=== PATIENT | male | born 1945 | race African-American/Black ===

== ENCOUNTER 2017-03-07 11:09 | Emergency (ER) | payer MEDICARE, MEDICAID ==
--- NOTE | 2017-03-07 11:20 | ER Document Report ---
ED Medical Screen (RME) - General Chief Complaint: Abdominal Pain Stated Complaint: STOMACH PAIN Time Seen by Provider: 03/07/17 11:18 Mode of Arrival: Ambulatory Information source: Patient TRAVEL OUTSIDE OF THE [place] IN LAST 30 DAYS: No - HPI Patient complains to provider of: abdominal pain Onset/Duration: Gradual Quality of pain: Fullness, Pressure Notes: 03/07/17 11:19 Patient is a 71-year-old male who presents to the emergency room complaining of abdominal pain and distention that been going on over the past few months and worsening, he reports he feels as though it is full of fluid, he reports that he cannot move his bowels for the past 3 days - Related Data Allergies/Adverse Reactions: No Known Allergies Allergy (Verified 03/07/17 11:14) Past Medical History - Past Medical History Cardiac Medical History: Reports: Hx Hypertension Endocrine Medical History: Reports: Hx Diabetes Mellitus Type 2 Renal/ Medical History: Denies: Hx Peritoneal Dialysis - Immunizations Hx Diphtheria, Pertussis, Tetanus Vaccination: - unk Physical Exam - Vital signs Vitals: Temp Pulse Resp BP Pulse Ox 98.1 F 77 20 113/86 H 97 03/07/17 11:14 03/07/17 11:14 03/07/17 11:14 03/07/17 11:14 03/07/17 11:14 Course - Vital Signs Vital signs: Temp Pulse Resp BP Pulse Ox 98.1 F 77 20 113/86 H 97 03/07/17 11:14 03/07/17 11:14 03/07/17 11:14 03/07/17 11:14 03/07/17 11:14
--- NOTE | 2017-03-07 11:54 | ER Document Report ---
ED GI/ - General Chief Complaint: Abdominal Pain Stated Complaint: STOMACH PAIN Time Seen by Provider: 03/07/17 11:18 Mode of Arrival: Ambulatory Notes: 71 yo male c/o pain to the umbilical hernia that protrudes (chronic) and the swelling to his abdomen (chorinic). Stating in the homeless correction Most worried because he can't pull up his pants like he wants to. Hx cirrhosis, no etoh in 2 years. No vomiting. No fever or chills. Normal BM's. hx 2 parencentisis to remove ascites in past, last 6 months ago at [facility]. TRAVEL OUTSIDE OF THE [place] IN LAST 30 DAYS: No - Related Data Allergies/Adverse Reactions: No Known Allergies Allergy (Verified 03/07/17 11:14) Past Medical History - General Information source: Patient - Social History Smoking Status: Current Every Day Smoker Chew tobacco use (# tins/day): No Frequency of alcohol use: Rare Drug Abuse: None Lives with: Homeless Family History: Reviewed & Not Pertinent Patient has suicidal ideation: No Patient has homicidal ideation: No - Past Medical History Cardiac Medical History: Reports: Hx Hypertension Endocrine Medical History: Reports: Hx Diabetes Mellitus Type 2 Renal/ Medical History: Denies: Hx Peritoneal Dialysis - Immunizations Hx Diphtheria, Pertussis, Tetanus Vaccination: - unk Review of Systems - Review of Systems Constitutional: No symptoms reported EENT: No symptoms reported Cardiovascular: No symptoms reported Respiratory: No symptoms reported Gastrointestinal: See HPI Genitourinary: No symptoms reported Male Genitourinary: No symptoms reported Musculoskeletal: No symptoms reported Skin: No symptoms reported Hematologic/Lymphatic: No symptoms reported Neurological/Psychological: No symptoms reported Physical Exam - Vital signs Vitals: Temp Pulse Resp BP Pulse Ox 98.1 F 77 20 113/86 H 97 03/07/17 11:14 03/07/17 11:14 03/07/17 11:14 03/07/17 11:14 03/07/17 11:14 Interpretation: Normal - General General appearance: Appears well, Alert - HEENT Head: Normocephalic, Atraumatic Eyes: Normal Conjunctiva: No: Icteric Pupils: PERRL - Respiratory Respiratory status: No respiratory distress Chest status: Nontender Breath sounds: Normal Chest palpation: Normal - Cardiovascular Rhythm: Regular Heart sounds: Normal auscultation Murmur: No - Abdominal Inspection: Normal Distension: Fluid wave, Other - protruburant, soft reducible umbilixal hernia Bowel sounds: Normal Tenderness: Nontender. No: Tender Organomegaly: No organomegaly - Back Back: Normal, Nontender - Extremities General upper extremity: Normal inspection, Nontender, Normal color, Normal ROM , Normal temperature General lower extremity: Normal inspection, Nontender, Normal color, Normal ROM , Normal temperature, Normal weight bearing. No: Golden's sign - Neurological Neuro grossly intact: Yes Cognition: Normal Orientation: AAOx4 Sheryl Coma Scale Eye Opening: Spontaneous Sheryl Coma Scale Verbal: Oriented Hancock Coma Scale Motor: Obeys Commands Hancock Coma Scale Total: 15 Speech: Normal Motor strength normal: LUE, RUE, LLE, RLE Sensory: Normal - Psychological Associated symptoms: Normal affect, Normal mood - Skin Skin Temperature: Warm Skin Moisture: Dry Skin Color: Normal Course - Re-evaluation Re-evalutation: 03/07/17 16:[address] to keep the umbilicus hernia in, and he will be referred with outpatient paracentitis per dr. cedillo consult. his vitals are stable, no sob. will give referral for general surgery as well. - Vital Signs Vital signs: Temp Pulse Resp BP Pulse Ox 97.9 F 63 16 130/85 H 99 03/07/17 16:15 03/07/17 16:15 03/07/17 16:15 03/07/17 16:15 03/07/17 16:15 - Laboratory Result Diagrams: 03/07/17 11:40 03/07/17 11:40 Laboratory results interpreted by me: 03/07/17 03/07/17 03/07/17 11:30 11:30 11:40 WBC 3.7 L RBC 3.88 L Hgb 12.8 L MCV 100 H Plt Count 67 L Seg Neutrophils % 27.6 L Lymphocytes % 59.2 H Absolute Neutrophils 1.0 L PT 16.5 H Total Bilirubin Direct Bilirubin AST ALT Alkaline Phosphatase Ammonia Total Protein Albumin Urine Urobilinogen 4.0 H 03/07/17 03/07/17 11:40 11:40 WBC RBC Hgb MCV Plt Count Seg Neutrophils % Lymphocytes % Absolute Neutrophils PT Total Bilirubin 1.5 H Direct Bilirubin 0.8 H AST 192 H ALT 126 H Alkaline Phosphatase 185 H Ammonia < 8.7 L Total Protein 8.3 H Albumin 3.0 L Urine Urobilinogen Discharge - Discharge Clinical Impression: Reducible Stable umbilical hernia, liver failure Ascites Qualifiers: Ascites type: due to alcoholic hepatitis Qualified Code(s): K70.11 - Alcoholic hepatitis with ascites Condition: Good Disposition: HOME, SELF-CARE Additional Instructions: to er if symptoms worsen call thursday morning to the radiology scheduling for this week drink Water every day referral to general surgery for the hernia tammie wrap to abdomen for comfort Forms: Follow-Up Radiology Testing Referrals: UNA MONTES MD [ACTIVE STAFF] - Follow up as needed
[2017-03-07 11:55] LABS: ABSOLUTE EOSINOPHILS # (AUTO) 0.1 10^3/uL (0.0-0.6); ABSOLUTE LYMPHOCYTES (AUTO) 2.2 10^3/uL (0.5-4.7); ABSOLUTE MONOCYTES (AUTO) 0.4 10^3/uL (0.1-1.4); BASOPHILS % (AUTO) 0.7 % (0-2); EOSINOPHILS % (AUTO) 2.2 % (0-6); HEMATOCRIT 38.6 % (37.9-51.0); HEMOGLOBIN 12.8 g/dL (13.5-17.0); HGB HCT DIFFERENCE -0.2; LYMPHOCYTES % (AUTO) 59.2 % (13-45); MEAN CORPUSCULAR HEMOGLOBIN 32.9 pg (27.0-33.4); MEAN CORPUSCULAR VOLUME 100 fl (80-97); MONOCYTES % (AUTO) 10.3 % (3-13); RED BLOOD COUNT 3.88 10^6/uL (4.35-5.55); RED CELL DISTRIBUTION WIDTH 13.8 % (11.5-14.0); SEGMENTED NEUTROPHILS % (AUTO) 27.6 % (42-78); WHITE BLOOD COUNT 3.7 10^3/uL (4.0-10.5)
[2017-03-07 12:01] LABS: APPEARANCE,URINE SLIGHTLY-CLOUDY; BILIRUBIN,URINE NEGATIVE (NEGATIVE); GLUCOSE, URINE NEGATIVE (NEGATIVE); KETONES,URINE NEGATIVE (NEGATIVE); LEUKOCYTE ESTERASE,URINE NEGATIVE (NEGATIVE); NITRITE,URINE NEGATIVE (NEGATIVE); PROTEIN,URINE NEGATIVE (NEGATIVE)
[2017-03-07 12:12] LABS: ALANINE AMINOTRANSFERASE 126 U/L (21-72); ALKALINE PHOSPHATASE 185 U/L (38-126); ASPARTATE AMINO TRANSFERASE 192 U/L (17-59); BILIRUBIN,DIRECT 0.8 mg/dL (0.0-0.4); BILIRUBIN,TOTAL 1.5 mg/dL (0.2-1.3); BLOOD UREA NITROGEN 10 mg/dL (7-20); CALCIUM 8.6 mg/dL (8.4-10.2); CHLORIDE 107 mmol/L (98-107); CREATININE RESULT 0.84 mg/dL (0.52-1.25); GLUCOSE 97 mg/dL (75-110); LIPASE 174.4 U/L (23-300); POTASSIUM 4.3 mmol/L (3.6-5.0); TOTAL PROTEIN 8.3 g/dL (6.3-8.2)
[2017-03-07 12:20] LABS: CARBON DIOXIDE 25 mmol/L (22-30); SODIUM 137.8 mmol/L (137-145)
[2017-03-07 12:26] LABS: ANION GAP 6 (5-19)
[2017-03-07 15:40] LABS: PROTHROMBIN TIME 16.5 SEC (11.4-15.4)
[2017-03-07 16:18] VITALS: BP 130/85
== END 2017-03-07 17:00 | disposition home or self-care (01) ==
LOC: ER 11:09
DX: K70.11 Alcoholic hepatitis with ascites (principal); K42.9 Umbilical hernia without obstruction or gangrene; K72.90 Hepatic failure, unspecified without coma; R10.9 Unspecified abdominal pain; R19.00 Intra-abdominal and pelvic swelling, mass and lump, unspecified site; F17.200 Nicotine dependence, unspecified, uncomplicated
CPT/HCPCS: 36415; 80053; 81001; 82140; 83690; 85025; 85610; 87086; 99284

== ENCOUNTER → 2017-03-09 | Day surgery (SDC) | payer MEDICARE, MEDICAID ==
--- NOTE | 2017-03-09 12:34 | RADIOLOGY REPORT (SQ) ---
EXAM DESCRIPTION: U/S ABD PARACENTESIS COMPLETED DATE/TIME: 03/09/2017 11:48 am REASON FOR STUDY: ASCITES (R18.8) R18.8 OTHER ASCITES COMPARISON: None. LIMITATIONS: None. PROCEDURE: Procedure, risks, benefit, and alternative explained to patient who then gave written con sent. The right lower quadrant abdominal wall marked using ultrasound guidance. A time-out was call ed for correct marking verification. Abdomen prepped and draped using sterile technique. Local anest hesia achieved using 5 ml of 1% lidocaine injection. A 6fr [id number]-G-[id number] set was introduced into t he peritoneal cavity. Fluid was drained. The catheter was removed and entry site was covered with s terile bandage. No immediate complications noted. Images acquired during the procedure were stored on PACS. FINDINGS: ENTRY SITE: Right lower quadrant. FLUID VOLUME: 5000 mL. FLUID ANALYSIS: Straw-colored fluid. OTHER: Fluid sent to the lab for testing. IMPRESSION: SUCCESSFUL ULTRASOUND GUIDED PARACENTESIS. COMMENT: Patient medication list reviewed:Yes- Quality ID# [id number]:Eligible professional attests to docu menting in the medical record they obtained, updated, or reviewed the patient's current medications. TECHNICAL DOCUMENTATION: JOB ID: [id number] [employer]- All Rights Reserved
[2017-03-09 13:16] LABS: FLUID APPEARANCE CLOUDY; FLUID RBC AVERAGE 166.5; FLUID RBC DILUENT USED NONE USED; FLUID RBC DILUTION FACTOR 1; FLUID RBC SIDE 1 173; FLUID RBC SIDE 2 160; FLUID TYPE PERITONEAL; TOTAL RBC SQUARES COUNTED FLD 25
== END ==
LOC: RAD 10:15
PROVIDERS: ATTEND Nurse Practitioner Family
PROC: 0W9G3ZZ Drainage of Peritoneal Cavity, Percutaneous Approach (ICD-10-PCS; principal; 2017-03-09)
DX: R18.8 Other ascites (principal)
CPT/HCPCS: 49083; 87070; 87075; 87205; 88305; 88313; 88341; 88342; 89050

== ENCOUNTER 2017-03-17 19:00 | Emergency (ER) | payer MEDICARE, MEDICAID ==
--- NOTE | 2017-03-17 19:44 | ER Document Report ---
ED Medical Screen (RME) - General Chief Complaint: Abdominal Pain Stated Complaint: ABDOMINAL PAIN Time Seen by Provider: 03/17/17 19:42 Notes: Patient is a 71-year-old male, past medical history hep C cirrhosis, chronic ascites, umbilical hernia, presents with increasing abdominal pain over the past 2 days. He has an appointment with Dr. Kelley to discuss repairing his umbilical hernia tomorrow. His last paracentesis was 2 weeks ago and he does not have one scheduled. Denies vomiting, diarrhea, constipation or urinary symptoms. PE: large reducible umbilical hernia, tense abdomen, normal bowel sounds, RRR, CTAB I have greeted and performed a rapid initial assessment of this patient. A comprehensive ED assessment and evaluation of the patient, analysis of test results and completion of the medical decision making process will be conducted by additional ED providers. TRAVEL OUTSIDE OF THE [place] IN LAST 30 DAYS: No - Related Data Allergies/Adverse Reactions: No Known Allergies Allergy (Verified 03/17/17 19:08) Past Medical History - Past Medical History Cardiac Medical History: Reports: Hx Hypertension Endocrine Medical History: Reports: Hx Diabetes Mellitus Type 2 Renal/ Medical History: Denies: Hx Peritoneal Dialysis - Immunizations Hx Diphtheria, Pertussis, Tetanus Vaccination: - unk Physical Exam - Vital signs Vitals: Temp Pulse Resp BP Pulse Ox 98.1 F 73 16 138/89 H 100 03/17/17 19:08 03/17/17 19:08 03/17/17 19:08 03/17/17 19:08 03/17/17 19:08 Course - Vital Signs Vital signs: Temp Pulse Resp BP Pulse Ox 98.1 F 73 16 138/89 H 100 03/17/17 19:08 03/17/17 19:08 03/17/17 19:08 03/17/17 19:08 03/17/17 19:08
--- NOTE | 2017-03-17 20:52 | ER Document Report ---
ED General - General Chief Complaint: Abdominal Pain Stated Complaint: ABDOMINAL PAIN Time Seen by Provider: 03/17/17 19:42 Notes: Patient is a 71-year-old male with history of alcoholic cirrhosis with chronic ascites and a history of an umbilical hernia, recently seen in the emergency department for similar concern who presents with pain over the site of the umbilical hernia as well as requesting to have his abdominal ascites drained. Patient denies anything is new or different today that brought him to the emergency department. He does note a dull, aching, constant pain to the affected areas of his abdomen. Nothing improves or worsens his pain. He is scheduled to see Dr. Kelley in the morning for the umbilical hernias. He denies any associated fever, nausea, vomiting or diarrhea. States that he is continued be able to tolerate oral intake without difficulty. He has not had any fever or constitutional symptoms. TRAVEL OUTSIDE OF THE [place] IN LAST 30 DAYS: No - Related Data Allergies/Adverse Reactions: No Known Allergies Allergy (Verified 03/17/17 19:08) Past Medical History - General Information source: Patient - Social History Smoking Status: Current Every Day Smoker Frequency of alcohol use: None Drug Abuse: None Lives with: Homeless Family History: Reviewed & Not Pertinent Patient has suicidal ideation: No Patient has homicidal ideation: No - Past Medical History Cardiac Medical History: Reports: Hx Hypertension Endocrine Medical History: Reports: Hx Diabetes Mellitus Type 2 Renal/ Medical History: Denies: Hx Peritoneal Dialysis - Immunizations Hx Diphtheria, Pertussis, Tetanus Vaccination: - unk Review of Systems - Review of Systems Notes: Constitutional: Negative for fever. HENT: Negative for sore throat. Eyes: Negative for visual changes. Cardiovascular: Negative for chest pain. Respiratory: Negative for shortness of breath. Gastrointestinal: Positive for abdominal pain Genitourinary: Negative for dysuria. Musculoskeletal: Negative for back pain. Skin: Negative for rash. Neurological: Negative for headaches, weakness or numbness. 10 point ROS negative except as marked above and in HPI. Physical Exam - Vital signs Vitals: Temp Pulse Resp BP Pulse Ox 98.1 F 73 16 138/89 H 100 03/17/17 19:08 03/17/17 19:08 03/17/17 19:08 03/17/17 19:08 03/17/17 19:08 Interpretation: Normal Notes: PHYSICAL EXAMINATION: GENERAL: Well-appearing, well-nourished and in no acute distress. HEAD: Atraumatic, normocephalic. EYES: Pupils equal round and reactive to light, extraocular movements intact, sclera anicteric, conjunctiva are normal. ENT: nares patent, oropharynx clear without exudates. Moist mucous membranes. NECK: Normal range of motion, supple without lymphadenopathy LUNGS: Breath sounds clear to auscultation bilaterally and equal. No wheezes rales or rhonchi. HEART: Regular rate and rhythm without murmurs ABDOMEN: Distended abdomen with ascites and a fluid wave. There is a bulging umbilical hernia that appears to be fluid containing that is easily reducible and nontender to palpation. There is no focal abdominal tenderness rebound or guarding. EXTREMITIES: Normal range of motion, no pitting or edema. No cyanosis. NEUROLOGICAL: No focal neurological deficits. Moves all extremities spontaneously and on command. PSYCH: Normal mood, normal affect. SKIN: Warm, Dry, normal turgor, no rashes or lesions noted. Course - Re-evaluation Re-evalutation: 03/17/17 20:51 Patient presents with complaints of abdominal pain over his hernia site as well as a feeling of abdominal distention from abdominal ascites. This is a chronic issue for the patient as nothing is new or different today. He had 2 L drained less than a week ago and I have explained to him that this is a chronic ongoing problem that he needs to follow through the appropriate channels for regular therapeutic paracenteses. He has no fever no history suggesting acute peritonitis indicated the need for immediate repeat paracentesis. He is following up with general surgery tomorrow for evaluation for hernia repair. Labs were obtained in triage and these will be reviewed. Patient is complaining of nausea without vomiting and states that he does get some burning in his lower abdomen when he smokes a cigarette. No indication for hospitalization or further advanced imaging. 03/17/17 21:43 KUB does not demonstrate any evidence of bowel obstruction. Patient is tolerating oral intake without difficulty. He is actually ambulating around the emergency department at this time requesting to leave. I have referred him to outpatient GI as he will require regular therapeutic paracenteses. At this time will discharge with return precautions and follow-up recommendations. Verbal discharge instructions given a the bedside and opportunity for questions given. Medication warnings reviewed. Patient is in agreement with this plan and has verbalized understanding of return precautions and the need for primary care follow-up in the next 24-72 hours. - Vital Signs Vital signs: Temp Pulse Resp BP Pulse Ox 98.3 F 76 19 132/86 H 96 03/17/17 22:06 03/17/17 22:06 03/17/17 22:06 03/17/17 22:06 03/17/17 22:06 - Laboratory Result Diagrams: 03/17/17 20:37 03/17/17 20:37 Laboratory results interpreted by me: 03/17/17 03/17/17 03/17/17 20:37 20:37 20:37 RBC 4.02 L Hgb 13.1 L MCV 99 H Plt Count 71 L Seg Neutrophils % 31.9 L Lymphocytes % 57.1 H Absolute Neutrophils 1.4 L PT 16.3 H Direct Bilirubin 0.7 H AST 124 H ALT 95 H Alkaline Phosphatase 177 H Albumin 2.9 L - Diagnostic Test Radiology reviewed: Reports reviewed Discharge - Discharge Clinical Impression: Abdominal pain Qualifiers: Abdominal location: generalized Qualified Code(s): R10.84 - Generalized abdominal pain Ascites Qualifiers: Ascites type: due to alcoholic cirrhosis Qualified Code(s): K70.31 - Alcoholic cirrhosis of liver with ascites Condition: Good Disposition: HOME, SELF-CARE Additional Instructions: You will require regular drainages of your abdominal fluid and need to follow- up with the appropriate specialists for this. We do not do this procedure in the ED. The type of doctor you need to have is a liver doctor also known as a strip deburrer. Most GI doctors do see patients with your condition. I have included in information for one of our local GI physicians who you should contact to schedule a regular evaluation and therapeutic paracenteses. Please follow-up with the general surgeon tomorrow regarding your umbilical hernia. Return for any additional concerns you may have. Referrals: DONITA FLORES MD [ACTIVE STAFF] - Follow up as needed
[2017-03-17 20:57] LABS: ABSOLUTE EOSINOPHILS # (AUTO) 0.1 10^3/uL (0.0-0.6); ABSOLUTE LYMPHOCYTES (AUTO) 2.4 10^3/uL (0.5-4.7); ABSOLUTE MONOCYTES (AUTO) 0.3 10^3/uL (0.1-1.4); ABSOLUTE NEUT (AUTO) 1.4 10^3/uL (1.7-8.2); BASOPHILS % (AUTO) 0.9 % (0-2); EOSINOPHILS % (AUTO) 2.1 % (0-6); HEMATOCRIT 39.6 % (37.9-51.0); HEMOGLOBIN 13.1 g/dL (13.5-17.0); HGB HCT DIFFERENCE -0.3; LYMPHOCYTES % (AUTO) 57.1 % (13-45); MEAN CORPUSCULAR HEMOGLOBIN 32.6 pg (27.0-33.4); MEAN CORPUSCULAR HGB CONC 33.1 g/dL (32.0-36.0); MEAN CORPUSCULAR VOLUME 99 fl (80-97); RED BLOOD COUNT 4.02 10^6/uL (4.35-5.55); RED CELL DISTRIBUTION WIDTH 13.8 % (11.5-14.0); SEGMENTED NEUTROPHILS % (AUTO) 31.9 % (42-78); WHITE BLOOD COUNT 4.3 10^3/uL (4.0-10.5)
[2017-03-17 20:59] LABS: PROTHROMBIN TIME 16.3 SEC (11.4-15.4)
[2017-03-17 21:00] LABS: PARTIAL THROMBOPLASTIN TIME 30.1 SEC (23.5-35.8)
[2017-03-17 21:09] LABS: ALANINE AMINOTRANSFERASE 95 U/L (21-72); ALBUMIN 2.9 g/dL (3.5-5.0); ALKALINE PHOSPHATASE 177 U/L (38-126); ANION GAP 7 (5-19); ASPARTATE AMINO TRANSFERASE 124 U/L (17-59); BILIRUBIN,DIRECT 0.7 mg/dL (0.0-0.4); BILIRUBIN,TOTAL 1.3 mg/dL (0.2-1.3); BLOOD UREA NITROGEN 9 mg/dL (7-20); CALCIUM 8.7 mg/dL (8.4-10.2); CARBON DIOXIDE 26 mmol/L (22-30); CHLORIDE 106 mmol/L (98-107); CREATININE RESULT 0.83 mg/dL (0.52-1.25); GLUCOSE 95 mg/dL (75-110); LIPASE 164.4 U/L (23-300); POTASSIUM 4.4 mmol/L (3.6-5.0); SODIUM 138.8 mmol/L (137-145); TOTAL PROTEIN 8.1 g/dL (6.3-8.2)
[2017-03-17] MEDS ORDERED: MORPHINE SULFATE IR 15 MG TABLET PO ONE (21:10)
--- NOTE | 2017-03-17 21:39 | RADIOLOGY REPORT (SQ) ---
EXAM DESCRIPTION: KUB/ABDOMEN (SINGLE VIEW) COMPLETED DATE/TIME: 03/17/2017 9:29 pm REASON FOR STUDY: eval sbo COMPARISON: None. NUMBER OF VIEWS: One view. TECHNIQUE: Supine radiographic image of the abdomen acquired. LIMITATIONS: None. FINDINGS: BOWEL GAS PATTERN: Nonspecific dilated gas-filled loops of small bowel seen throughout the abdomen. No air-fluid levels. There is mild mild colonic stool. CALCIFICATIONS: No suspicious calcifications. SOFT TISSUES: No gross mass or suggestion of organomegaly. HARDWARE: None in the abdomen. BONES: No acute fracture. No worrisome bone lesions. OTHER: No other significant finding. IMPRESSION: Nonspecific bowel gas pattern with dilated gas-filled loops of small bowel. TECHNICAL DOCUMENTATION: JOB ID: [id number] [employer]- All Rights Reserved
[2017-03-17 22:10] VITALS: BP 132/86
== END 2017-03-17 22:06 | disposition home or self-care (01) ==
LOC: ER 19:00
DX: R10.84 Generalized abdominal pain (principal); K70.31 Alcoholic cirrhosis of liver with ascites; K46.9 Unspecified abdominal hernia without obstruction or gangrene; F17.200 Nicotine dependence, unspecified, uncomplicated; I10 Essential (primary) hypertension; E11.9 Type 2 diabetes mellitus without complications
CPT/HCPCS: 99284; 36415; 83690; 85025; 85610; 85730; 80053; 74000; A9270

== ENCOUNTER → 2017-03-18 | Outpatient (CLI) | payer MEDICARE, MEDICAID ==
[2017-03-18 17:08] LABS: ABSOLUTE EOSINOPHILS # (AUTO) 0.1 10^3/uL (0.0-0.6); ABSOLUTE MONOCYTES (AUTO) 0.5 10^3/uL (0.1-1.4); ABSOLUTE NEUT (AUTO) 1.8 10^3/uL (1.7-8.2); BASOPHILS % (AUTO) 0.8 % (0-2); EOSINOPHILS % (AUTO) 2.1 % (0-6); HEMATOCRIT 39.3 % (37.9-51.0); HEMOGLOBIN 12.9 g/dL (13.5-17.0); HGB HCT DIFFERENCE -0.6; LYMPHOCYTES % (AUTO) 46.2 % (13-45); MEAN CORPUSCULAR HEMOGLOBIN 32.8 pg (27.0-33.4); MEAN CORPUSCULAR HGB CONC 32.9 g/dL (32.0-36.0); MEAN CORPUSCULAR VOLUME 100 fl (80-97); MONOCYTES % (AUTO) 10.4 % (3-13); RED BLOOD COUNT 3.93 10^6/uL (4.35-5.55); RED CELL DISTRIBUTION WIDTH 13.8 % (11.5-14.0); SEGMENTED NEUTROPHILS % (AUTO) 40.5 % (42-78); WHITE BLOOD COUNT 4.4 10^3/uL (4.0-10.5)
[2017-03-18 17:26] LABS: ALANINE AMINOTRANSFERASE 92 U/L (21-72); ALBUMIN 2.8 g/dL (3.5-5.0); ALKALINE PHOSPHATASE 168 U/L (38-126); ASPARTATE AMINO TRANSFERASE 111 U/L (17-59); BILIRUBIN,DIRECT 0.8 mg/dL (0.0-0.4); BILIRUBIN,TOTAL 1.3 mg/dL (0.2-1.3); TOTAL PROTEIN 8.1 g/dL (6.3-8.2)
== END ==
LOC: OD 15:58
PROVIDERS: ATTEND Surgery
DX: R10.9 Unspecified abdominal pain (principal); K42.9 Umbilical hernia without obstruction or gangrene
CPT/HCPCS: 36415; 80076; 85025

== ENCOUNTER 2017-03-23 08:55 | Emergency (ER) | payer MEDICARE, MEDICAID ==
[2017-03-23 09:03] VITALS: BP 135/105
--- NOTE | 2017-03-23 09:24 | ER Document Report ---
ED GI/ - General Chief Complaint: Abdominal Pain Stated Complaint: ABDOMINAL PAIN Time Seen by Provider: 03/23/17 09:16 Notes: The patient is a 71-year-old male, past medical history alcoholic cirrhosis, chronic ascites, chronic umbilical hernia, presents requesting paracentesis. His last paracentesis was 2.5 weeks ago. This is his third visit to the emergency room requesting a paracentesis. He has not followed up with GI or interventional radiology. He had a paracentesis performed at [facility] 2 months ago amnd is scheduled for a umbilical hernia repair by Dr. Kelley on 03/26. Denies fevers, nausea, vomiting, diarrhea, constipation, chest pain, shortness of breath, urinary symptoms or rash. TRAVEL OUTSIDE OF THE [place] IN LAST 30 DAYS: No - Related Data Allergies/Adverse Reactions: No Known Allergies Allergy (Verified 03/23/17 09:00) Past Medical History - General Information source: Patient - Social History Smoking Status: Current Every Day Smoker Chew tobacco use (# tins/day): No Frequency of alcohol use: None Drug Abuse: None Family History: Reviewed & Not Pertinent Patient has suicidal ideation: No Patient has homicidal ideation: No - Past Medical History Cardiac Medical History: Reports: Hx Hypertension Endocrine Medical History: Reports: Hx Diabetes Mellitus Type 2 Renal/ Medical History: Denies: Hx Peritoneal Dialysis Past Surgical History: Reports: Hx Abdominal Surgery - "blockage removal" - Immunizations Hx Diphtheria, Pertussis, Tetanus Vaccination: No - unk Review of Systems - Review of Systems Notes: REVIEW OF SYSTEMS: CONSTITUTIONAL: -fevers, -chills EENT: -eye pain, -difficulty swallowing, -nasal congestion CARDIOVASCULAR:-chest pain, -syncope. RESPIRATORY: -cough, -SOB GASTROINTESTINAL: +abdominal pain, -nausea, -vomiting, -diarrhea GENITOURINARY: -dysuria, -hematuria MUSCULOSKELETAL: -back pain, -neck pain SKIN: -rash or skin lesions. HEMATOLOGIC: -easy bruising or bleeding. LYMPHATIC: -swollen, enlarged glands. NEUROLOGICAL: -altered mental status or loss of consciousness, -headache, - neurologic symptoms PSYCHIATRIC: -anxiety, -depression. ALL OTHER SYSTEMS REVIEWED AND NEGATIVE. Physical Exam - Vital signs Vitals: Temp Pulse Resp BP Pulse Ox 97.5 F 70 18 135/105 H 99 03/23/17 09:00 03/23/17 09:00 03/23/17 09:00 03/23/17 09:00 03/23/17 09:00 - Notes Notes: PHYSICAL EXAMINATION: GENERAL: Well-appearing, well-nourished and in no acute distress. HEAD: Atraumatic, normocephalic. EYES: Pupils equal round and reactive to light, extraocular movements intact, sclera anicteric, conjunctiva are normal. ENT: nares patent, oropharynx clear without exudates. Moist mucous membranes. NECK: Normal range of motion, supple without lymphadenopathy LUNGS: Breath sounds clear to auscultation bilaterally and equal. No wheezes rales or rhonchi. HEART: Regular rate and rhythm without murmurs ABDOMEN: Large umbilical hernia that is reducible, tense abdomen, non-tender EXTREMITIES: Normal range of motion, no pitting or edema. No cyanosis. NEUROLOGICAL: Cranial nerves grossly intact. Normal speech, normal gait. Normal sensory and motor exams. PSYCH: Normal mood, normal affect. SKIN: Warm, Dry, normal turgor, no rashes or lesions noted. Course - Re-evaluation Re-evalutation: 03/23/17 09:27 Pt presents to the ER multiple times with request for paracentesis, even after being told that the emergency room will not do a routine paracentesis. He is having difficulty following up with GI or interventional radiology. Patient does not have any emergent need for paracentesis without fever or increasing abdominal pain. Spoke to Brendon ( [employer]) and he will attempt to fit patient in for routine paracentesis today. Coags from 5 days ago were normal and he is not on any blood thinners. - Vital Signs Vital signs: Temp Pulse Resp BP Pulse Ox 97.5 F 70 18 135/105 H 99 03/23/17 09:00 03/23/17 09:00 03/23/17 09:00 03/23/17 09:00 03/23/17 09:00 Discharge - Discharge Clinical Impression: Ascites Qualifiers: Ascites type: due to alcoholic cirrhosis Qualified Code(s): K70.31 - Alcoholic cirrhosis of liver with ascites Abdominal pain Qualifiers: Abdominal location: generalized Qualified Code(s): R10.84 - Generalized abdominal pain Condition: Stable Disposition: HOME, SELF-CARE Additional Instructions: You will be going to interventional radiology for a paracentesis today. Follow- up with Dr. Kelley as scheduled for your umbilical hernia repair this week. ABDOMINAL PAIN: There are many causes of abdominal pain. Pain can mean a serious problem requiring surgery (such as appendicitis). It can also be an innocent problem that goes away on its own (such as a viral infection). Often, time must pass to determine the cause of pain. The physician does not feel that hospitalization is necessary, at present. Things may change within the next 24 hours. Call the doctor or come back for re- examination if any problems occur, such as: (1) Pain that becomes more severe, steady, or becomes concentrated in one specific area. Also, pain that is more severe with movement or coughing. (2) Vomiting that persists or becomes more frequent. (3) Blood in the vomitus, urine, or bowel movements. Blood in the stool may have a tarry or black appearance. (4) Shaking chills or fever greater than 100 degrees F. (5) The abdomen becomes more distended or swollen. (6) Bowel movements cease. (7) Failure to improve as expected. NORMAL EXAM AND WORKUP: At this time, your examination and workup show no significant abnormality. No significant abnormal physical findings are noted. All laboratory, EKG, and imaging (x-ray, CT scans, ultrasound) studies that were ordered show no significant abnormality. Although your examination and all studies that were ordered showed no significant abnormal finding, there are no examinations and no studies that are 100% accurate. There is always the possibility that some abnormality could exist and not be detected with physical examination or within the limits and capabilities of laboratory and other studies. You should return or follow up as you were instructed on your visit today for further evaluation if your symptoms do not resolve. FOLLOW-UP CARE: If you have been referred to a physician for follow-up care, call the physician s office for an appointment as you were instructed or within the next two days. If you experience worsening or a significant change in your symptoms, notify the physician immediately or return to the Emergency Department at any time for re-evaluation.
== END 2017-03-23 09:53 | disposition home or self-care (01) ==
LOC: ER 08:55
DX: R10.84 Generalized abdominal pain (principal); K70.31 Alcoholic cirrhosis of liver with ascites; I10 Essential (primary) hypertension; E11.9 Type 2 diabetes mellitus without complications; F17.200 Nicotine dependence, unspecified, uncomplicated; K42.9 Umbilical hernia without obstruction or gangrene
CPT/HCPCS: 99283

== ENCOUNTER → 2017-03-23 | Day surgery (SDC) | payer MEDICARE, MEDICAID ==
--- NOTE | 2017-03-23 15:06 | RADIOLOGY REPORT (SQ) ---
EXAM DESCRIPTION: U/S ABD PARACENTESIS COMPLETED DATE/TIME: 03/23/2017 2:58 pm REASON FOR STUDY: ASCITES COMPARISON None. LIMITATIONS: None. PROCEDURE: After obtaining informed consent, the patient was brought to the ultrasound suite. The p rocedure was performed with the patient on a gurney. Ultrasound was used to identify a prominent poc ket of ascites in the right lower quadrant. An appropriate access site was selected. The patient wa s prepped and draped in usual sterile fashion. The access site was anesthetized with 5 mL 1% lidoca ine. A [id number]-[id number] needle was advanced into the fluid. After aspiration of fluid the needle, th e catheter was advanced off the needle into the fluid. A total of 5,000 mL of straw-colored fluid wa s removed. The patient tolerated the procedure well left the department in satisfactory condition. IMPRESSION: Successful ultrasound-guided paracentesis COMMENT: Patient medication list reviewed: Yes- Quality ID# [id number]:Eligible professional attests to doc umenting in the medical record they obtained, updated, or reviewed the patient's current medications. Quality ID #76: The patient was prepped and draped using maximum sterile barrier technique including cap, mask, sterile gown, sterile gloves, a large sterile sheet, hand hygiene, and 2% Chlorhexidine fo r cutaneous antisepsis. When ultrasound is used, sterile ultrasound techniques are followed requiring sterile gel and sterile probes. Quality ID #[id number]: Final reports for procedures using fluoroscopy that document radiation exposure roger nathan, or exposure time and number of fluorographic images (if radiation exposure indices are not avail able) TECHNICAL DOCUMENTATION: JOB ID: [id number] [employer]- All Rights Reserved
== END ==
LOC: RAD 13:22 → EDSTATUS 03-25 09:30
PROVIDERS: ATTEND Emergency Medicine
PROC: 0W9G3ZZ Drainage of Peritoneal Cavity, Percutaneous Approach (ICD-10-PCS; principal; 2017-03-23)
DX: R18.8 Other ascites (principal)
CPT/HCPCS: 49083; 74177; 99283

== ENCOUNTER → 2017-03-23 | Outpatient (CLI) | payer MEDICARE, MEDICAID ==
--- NOTE | 2017-03-23 09:43 | RADIOLOGY REPORT (SQ) ---
EXAM DESCRIPTION: CT ABD/PELVIS WITH IV ORAL COMPLETED DATE/TIME: 03/23/2017 8:44 am REASON FOR STUDY: UMBILICAL HERNIA (K42.9) K42.9 UMBILICAL HERNIA WITHOUT OBSTRUCTION OR GANGRENE COMPARISON: None. TECHNIQUE: CT scan of the abdomen and pelvis performed with intravenous and oral contrast using esteban eloy scanning technique with dynamic intravenous contrast injection. Images reviewed with lung, soft t issue, and bone windows. Reconstructed coronal and sagittal MPR images reviewed. Delayed images for e valuation of the urinary system also acquired. All images stored on PACS. All CT scanners at this facility use dose modulation, iterative reconstruction, and/or weight based d osing when appropriate to reduce radiation dose to as low as reasonably achievable (ALARA). [facility]: Dose Right [facility]: CareDose [facility]: Dose Right [facility]: Teradose 4D [facility]: [facility] CONTRAST TYPE AND DOSE: contrast/concentration: Isovue 370.00 mg/ml; Total Contrast Delivered: 77.0 ml; Total Saline Delivered: 67.0 ml RENAL FUNCTION: BUN 9 creatinine 0.8 RADIATION DOSE: Up-to-date CT equipment and radiation dose reduction techniques were employed. CTDIv ol: 7.1 - 8.0 mGy. DLP: 815 mGy-cm.. LIMITATIONS: None. FINDINGS: LOWER CHEST: No significant findings. No nodules or infiltrates. LIVER: Sub capsular nodularity. Diffuse fatty infiltration. 2 cm subcapsular enhancing lesion anter ior segment right lobe. SPLEEN: Normal size. No focal lesions. PANCREAS: No masses. No significant calcifications. No adjacent inflammation or peripancreatic fluid collections. Pancreatic duct not dilated. GALLBLADDER: No identified stones by CT criteria. No inflammatory changes to suggest cholecystitis. ADRENAL GLANDS: No significant masses or asymmetry. RIGHT KIDNEY AND URETER: No solid masses. No significant calcification. No hydronephrosis or hydroure ter. LEFT KIDNEY AND URETER: No solid masses. No significant calcification. No hydronephrosis or hydrouret er. AORTA AND VESSELS: No aneurysm. RETROPERITONEUM: No retroperitoneal adenopathy, hemorrhage or masses. BOWEL AND PERITONEAL CAVITY: No obstruction. Large amount of ascites. No free air. No adenopathy. APPENDIX: Normal. PELVIS: The free fluid. No adenopathy. ABDOMINAL WALL: Umbilical hernia containing fat. Defect measures approximately 4.3 x 2.0 cm in trans verse by craniocaudal diameter. BONES: No acute findings. OTHER: No other significant finding. IMPRESSION: 1. Umbilical hernia containing fat. 2. Cirrhosis. Large amount of ascites. 3. 2 cm mass in the right lobe of the liver. COMMENT: Findings were called to Dr. Luevano nurse in the operating room. TECHNICAL DOCUMENTATION: JOB ID: [id number] Quality ID # [id number]: Final reports with documentation of one or more dose reduction techniques (e.g., Au tomated exposure control, adjustment of the mA and/or kV according to patient size, use of iterative reconstruction technique) 2010 [employer]- All Rights Reserved
== END ==
LOC: RAD 08:10
PROVIDERS: ATTEND Surgery
DX: K42.9 Umbilical hernia without obstruction or gangrene (principal); R16.0 Hepatomegaly, not elsewhere classified; K74.60 Unspecified cirrhosis of liver
CPT/HCPCS: 74177